=== PATIENT | female | born 1985 | race African-American/Black ===

== ENCOUNTER 2017-01-16 07:15 | Emergency (ER) | payer SELFPAY ==
[2017-01-16 07:34] VITALS: TEMP 98.4; BMI 25.0
--- NOTE | 2017-01-16 08:29 | PDOC ---
History of Present Illness - General Chief Complaint: Chest Pain Stated Complaint: CHEST PAIN Time Seen by Provider: 01/16/17 07:38 History Source: Patient - History of Present Illness Presenting Symptoms: Chest Pain, Short of Breath Past History - Past Medical History Allergies/Adverse Reactions: Allergies Allergy/AdvReac Type Severity Reaction Status Date / Time pineapple Allergy Swelling Verified 01/16/17 07:25 Home Medications: Ambulatory Orders NK [No Known Home Medication] 01/16/17 Other medical history: NONE - Suicide/Smoking/Psychosocial Hx Smoking History: Never smoked Information on smoking cessation initiated: No Hx Alcohol Use: No Drug/Substance Use Hx: No Substance Use Type: None Review of Systems - Review of Systems Constitutional: No: Chills, Fever Respiratory: Yes: Shortness of Breath. No: Cough Cardiac (ROS): Yes: Chest Pain. No: Lightheadedness, Palpitations, Syncope *Physical Exam - Vital Signs Last Vital Signs Temp Pulse Resp BP Pulse Ox 98.4 F 79 20 109/74 100 01/16/17 07:22 01/16/17 07:22 01/16/17 07:22 01/16/17 07:22 01/16/17 07:22 - Physical Exam General Appearance: Yes: Appropriately Dressed. No: Apparent Distress HEENT: positive: Normal Voice Neck: positive: Supple Respiratory/Chest: negative: Respiratory Distress Cardiovascular: negative: Regular Rate, S1, S2 Extremity: positive: Normal Inspection Integumentary: positive: Dry, Warm Neurologic: positive: Fully Oriented, Alert, Normal Mood/Affect ED Treatment Course - ADDITIONAL ORDERS Additional order review: Laboratory Results 01/16/17 08:20 Urine HCG, Qual Negative - RADIOLOGY Radiology Studies Ordered: Category Date Time Status CHEST PA & LAT [RAD] Stat Radiology 01/16/17 08:20 Completed Medical Decision Making - Medical Decision Making 01/16/17 08:22 31 yo F, no sig hx, p/w cp. pt woke up w/ pressure like L sided CP w/SOB that was constant and has since significantly improved. No palpitations, leg pain or swelling. No cough, f/c. No h/o similar sxs. No obvious RF for DVT/PE See exam CP this am Since improved Stable and well helen w/ unremarkable exam Unlikely ACS as no RF, PERCs out -ekg -cxr -anticipate dc w/ pmd f/u 01/16/17 08:29 01/16/17 09:36 EKG and chest x-ray unremarkable. Patient asymptomatic at this time and remains stable. Will DC with PMD follow-up as needed *DC/Admit/Observation/Transfer Diagnosis at time of Disposition: Chest pain Qualifiers: Chest pain type: unspecified Qualified Code(s): R07.9 - Chest pain, unspecified ; R07.9 - Chest pain, unspecified - Discharge Dispostion Disposition: HOME Condition at time of disposition: Good - Patient Instructions Printed Discharge Instructions: DI for Atypical Chest Pain Additional Instructions: Your EKG and chest x-ray were normal. If symptoms recur, zeke follow-up with your PMD
[2017-01-16 10:05] VITALS: BP 129/80; PULSE 72
--- NOTE | 2017-01-16 13:22 | EKG ---
Test Reason : Blood Pressure : / mmHG Vent. Rate : 062 BPM Atrial Rate : 062 BPM P-R Int : 162 ms QRS Dur : 074 ms QT Int : 394 ms P-R-T Axes : 053 039 026 degrees QTc Int : 399 ms NORMAL SINUS RHYTHM SEPTAL INFARCT , AGE UNDETERMINED ABNORMAL ECG NO PREVIOUS ECGS AVAILABLE Confirmed by SHAVONNE SALAZAR MD ([id number]) on 01/16/2017 1:22:06 PM Referred By: Confirmed By:SHAVONNE SALAZAR MD
== END 2017-01-16 09:40 | disposition home or self-care (01) ==
LOC: JER 07:15
DX: R07.9 Chest pain, unspecified (principal)
CPT/HCPCS: 71020-TC; 84703; 93005; 93010; 99284-25

== ENCOUNTER 2021-12-12 22:17 | Emergency (ER) | payer SELFPAY ==
[2021-12-12 22:26] VITALS: BP 98/67; PULSE 89; RESP 16; TEMP 99; BMI 29.1
[2021-12-12] MEDS ORDERED: KETOROLAC TROMETHAMINE 30 MG/1 ML VIAL IVPUSH ONE (23:10)
[2021-12-12] MEDS ORDERED: SODIUM CHLORIDE 0.9% 500 ML INFUS.BAG IV ONE (23:10)
[2021-12-12] MEDS ORDERED: PANTOPRAZOLE SODIUM 40 MG VIAL IVPUSH ONE (23:10)
[2021-12-12] MEDS ORDERED: PANTOPRAZOLE SODIUM 40 MG/100 ML BAG IVPB ONE (23:25)
[2021-12-12 23:51] LABS: BASO % 0.5 % (0-2.0); EOS % 3.1 % (0-4.5); HEMATOCRIT 37.5 % (32.4-45.2); HEMOGLOBIN 12.7 GM/dL (10.7-15.3); LYMPH % 32.6 % (8-40); MCH 29.1 pg (25.7-33.7); MCHC 33.9 g/dl (32.0-36.0); MEAN CELL VOLUME 85.9 fl (80-96); MEAN PLT VOLUME 7.6 fl (7.5-11.1); MONO % 5.2 % (3.8-10.2); NEUT % 58.6 % (42.8-82.8); PLATELET COUNT 321 10^3/uL (134-434); RBC 4.37 M/mm3 (3.60-5.2); RDW 12.8 % (11.6-15.6); WHITE BLOOD COUNT 8.9 K/mm3 (4.0-10.0)
[2021-12-12 23:54] LABS: EPI CELLS 16 /uL (0-25.1); HYALINE CASTS 0 /uL (0-3.1); URINE APPEARANCE CLEAR; URINE BACTERIA 27 /uL (0-1359); URINE BILIRUBIN NEGATIVE (NEGATIVE); URINE COLOR YELLOW; URINE GLUCOSE (UA) NEGATIVE (NEGATIVE); URINE KETONE NEGATIVE (NEGATIVE); URINE LEUK ESTERASE 2+ (NEGATIVE); URINE NITRITE NEGATIVE (NEGATIVE); URINE PROTEIN NEGATIVE (NEGATIVE); URINE RBC 28 /uL (0-23.9); URINE UROBILINOGEN 0.2 mg/dL (0.2-1.0); URINE WBC 60 /uL (0-25.8)
[2021-12-13 00:16] LABS: CALCIUM 9.4 mg/dL (8.5-10.1)
[2021-12-13 00:17] LABS: ALBUMIN 3.6 g/dl (3.4-5.0); BLOOD UREA NITROGEN 16.3 mg/dL (7-18)
[2021-12-13 00:19] LABS: CREATININE 0.8 mg/dL (0.55-1.3)
[2021-12-13 00:21] LABS: BILIRUBIN,TOTAL 0.3 mg/dL (0.2-1); INR 1.11 (0.83-1.09); PROTHROMBIN TIME (PATIENT) 12.8 SEC (9.7-13.0); TOT PROT 8.3 g/dl (6.4-8.2)
== END 2021-12-13 02:00 | disposition home or self-care (01) ==
LOC: JER 22:17
PROC: 3E0333Z Introduction of Anti-inflammatory into Peripheral Vein, Percutaneous Approach (ICD-10-PCS; principal; 2021-12-12)
PROC: 3E033GC Introduction of Other Therapeutic Substance into Peripheral Vein, Percutaneous Approach (ICD-10-PCS; 2021-12-12)
DX: R10.11 Right upper quadrant pain (principal)
CPT/HCPCS: 0241U-QW; 36415; 76705-TC; 80053; 81003; 83690; 84703; 85025; 85610; 99284-25